=== PATIENT | female | born 1980 | race African-American/Black ===

== ENCOUNTER 2023-08-13 10:50 | Emergency (ER) | payer MEDICAID ==
[~2023-08-13] VITALS: Ht 162.6 cm; Wt 104.5 kg
[2023-08-13 11:01] VITALS: TEMP 98.5
[2023-08-13] MEDS: HYDROCHLOROTHIAZIDE 25 MG TABLET PO ONE (14:07)
[2023-08-13] MEDS: AmLODIPine BESYLATE 5 MG TABLET PO ONE (14:07)
[2023-08-13] MEDS: CloNIDine HCL 0.2 MG TABLET PO ONE (15:33)
[2023-08-13 16:48] VITALS: BP 131/78; PULSE 89; RESP 18
[2023-08-13] MEDS ORDERED: AMLO-257 PO (17:13)
== END 2023-08-13 17:24 | disposition home or self-care (01) ==
LOC: EMS 12:43
DX: I10 Essential (primary) hypertension (principal); R51.9 Headache, unspecified
CPT/HCPCS: 99284; Z7502; Z7610

== ENCOUNTER 2023-08-16 07:35 | Emergency (ER) | payer MEDICAID ==
[~2023-08-16] VITALS: Ht 162.6 cm; Wt 104.5 kg
[~2023-08-16 07:35] MED LIST: AMLO-257 PO
[2023-08-16 07:36] VITALS: TEMP 98.2
[2023-08-16] MEDS ORDERED: HYDR25TA2 PO ×2 (08:23→08:32)
[2023-08-16] MEDS ORDERED: HYDROCHLOROTHIAZIDE 25 MG TABLET PO ONE (08:30)
[2023-08-16 08:56] VITALS: BP 148/87; PULSE 89; RESP 18
== END 2023-08-16 12:44 | disposition home or self-care (01) ==
LOC: EMS 07:35
DX: I10 Essential (primary) hypertension (principal)
CPT/HCPCS: 99283